=== PATIENT | female | born 1980 | race African-American/Black ===

== ENCOUNTER → 2017-05-08 | Outpatient (CLI) | payer OTHER ==
--- NOTE | 2017-05-08 16:57 | RAD ---
Examination: X-rays of the right ankle. Clinical history: Contusion of right ankle with pain and swelling after injury at work. Technique: Three views of the right ankle were obtained. Comparison: None available. Findings: No acute fracture, dislocation, or destructive bony lesion is noted. Mild soft tissue swelling is seen about the ankle. Impression: 1. No acute fracture or dislocation. Reported By:
== END ==
LOC: RAD 16:23
PROVIDERS: ATTEND Obstetrics & Gynecology Obstetrics
DX: S90.02XA Contusion of left ankle, initial encounter (principal); X58.XXXA Exposure to other specified factors, initial encounter
CPT/HCPCS: 73610